=== PATIENT | female | born 1985 | race Caucasian/White ===

== ENCOUNTER → 2017-07-19 | Outpatient (CLI) | payer OTHER | LOC: FIMAGING 13:05 | PROVIDERS: ATTEND Obstetrics & Gynecology | DX: O34.01 Maternal care for unspecified congenital malformation of uterus, first trimester (principal); O34.219 Maternal care for unspecified type scar from previous cesarean delivery; Q51.3 Bicornate uterus; Z3A.11 11 weeks gestation of pregnancy ==

== ENCOUNTER → 2017-08-31 | Outpatient (CLI) | payer OTHER | LOC: FIMAGING 13:50 | PROVIDERS: ATTEND Obstetrics & Gynecology | DX: O34.02 Maternal care for unspecified congenital malformation of uterus, second trimester (principal) ==

== ENCOUNTER → 2017-09-27 | Outpatient (CLI) | payer OTHER | LOC: FIMAGING 12:54 | PROVIDERS: ATTEND Obstetrics & Gynecology | DX: O34.02 Maternal care for unspecified congenital malformation of uterus, second trimester (principal); O35.8XX0 Maternal care for other (suspected) fetal abnormality and damage, not applicable or unspecified; Z3A.21 21 weeks gestation of pregnancy ==

== ENCOUNTER → 2017-11-15 | Outpatient (CLI) | payer OTHER | LOC: FIMAGING 12:05 | PROVIDERS: ATTEND Obstetrics & Gynecology | DX: O36.5930 Maternal care for other known or suspected poor fetal growth, third trimester, not applicable or unspecified (principal); O43.123 Velamentous insertion of umbilical cord, third trimester; O34.03 Maternal care for unspecified congenital malformation of uterus, third trimester; O34.219 Maternal care for unspecified type scar from previous cesarean delivery; Q51.3 Bicornate uterus; Z3A.28 28 weeks gestation of pregnancy ==

== ENCOUNTER → 2017-11-29 | Outpatient (CLI) | payer OTHER | LOC: FIMAGING 11:49 | PROVIDERS: ATTEND Obstetrics & Gynecology | DX: O34.03 Maternal care for unspecified congenital malformation of uterus, third trimester (principal); O43.123 Velamentous insertion of umbilical cord, third trimester; O36.5930 Maternal care for other known or suspected poor fetal growth, third trimester, not applicable or unspecified; O09.213 Supervision of pregnancy with history of pre-term labor, third trimester; Z3A.30 30 weeks gestation of pregnancy; Z98.891 History of uterine scar from previous surgery ==

== ENCOUNTER → 2017-12-13 | Outpatient (CLI) | payer OTHER | LOC: FIMAGING 12:57 | PROVIDERS: ATTEND Obstetrics & Gynecology | DX: O34.03 Maternal care for unspecified congenital malformation of uterus, third trimester (principal); O36.5930 Maternal care for other known or suspected poor fetal growth, third trimester, not applicable or unspecified; Z3A.32 32 weeks gestation of pregnancy ==